=== PATIENT | male | born 1980 | race Caucasian/White ===

== ENCOUNTER 2018-02-20 15:53 | Emergency (ER) | payer BC ==
[2018-02-20] MEDS ORDERED: Lidocaine 2% with EPINEPHrine 1:100,000 20 ML MDV INJECT ONE (16:04)
--- NOTE | 2018-02-20 16:49 | EDM.PDOC ---
ED HPI GENERAL MEDICAL PROBLEM - General Chief Complaint: Lower Extremity Injury/Pain Stated Complaint: chainsaw cut Time Seen by Provider: 02/20/18 15:56 Source of Information: Reports: Patient History Limitations: Reports: No Limitations - History of Present Illness INITIAL COMMENTS - FREE TEXT/NARRATIVE: Patient was cutting wood and during his last cut the wood kicked back, causing the blade to hit his leg above the right knee. He rates pain a 5/10 and is bearable. He has no other complaints and has a belt wrapped around his leg. Onset: Today, Sudden Onset Time: 16:00 Location: Reports: Lower Extremity, Right Quality: Reports: Ache Severity: Mild Right Upper Leg Pain Score (Numeric/FACES): 5 - Related Data Allergies Allergy/AdvReac Type Severity Reaction Status Date / Time No Known Allergies Allergy Verified 02/20/18 16:20 Home Meds: Home Meds . [No Known Home Meds] 02/20/18 [History] Past Medical History - Past Health History Medical/Surgical History: Denies Medical/Surgical History Social & Family History - Tobacco Use Smoking Status *Q: Current Every Day Smoker Years of Tobacco use: 20 Packs/Tins Daily: 1 Review of Systems - Review of Systems Review Of Systems: See Below Constitutional: Reports: No Symptoms Eyes: Reports: No Symptoms Ears: Reports: No Symptoms Nose: Reports: No Symptoms Mouth/Throat: Reports: No Symptoms Respiratory: Reports: No Symptoms Cardiovascular: Reports: No Symptoms GI/Abdominal: Reports: No Symptoms Genitourinary: Reports: No Symptoms Musculoskeletal: Reports: No Symptoms Skin: Reports: Wound Neurological: Reports: No Symptoms Psychiatric: Reports: No Symptoms ED EXAM, GENERAL - Physical Exam Exam: See Below Exam Limited By: No Limitations General Appearance: Alert, WD/WN, No Apparent Distress Peripheral Pulses: 2+: Posterior Tibial (L), Posterior Tibial (R), Dorsalis Pedis (L), Dorsalis Pedis (R) Extremities: Normal Range of Motion, Non-Tender, Normal Capillary Refill Neurological: Alert, Oriented, CN II-XII Intact, Normal Cognition, Normal Gait, Normal Reflexes, No Motor/Sensory Deficits Psychiatric: Normal Affect, Normal Mood Skin Exam: Wound/Incision (9 cm laceration to right lower thigh) Lymphatic: No Adenopathy ED TRAUMA EXTREMITY PROCEDURES - Laceration/Wound Repair Right Lower Thigh Lac/Wound Length In cm: 9 Appearance: Superficial, Linear Distal NVT: Neuro & Vascular Intact Anesthetic Type: Local Local Anesthesia - Lidocaine (Xylocaine): 1% with EPI Local Anesthetic Volume: 5cc Skin Prep: Chlorhexidine (Hibiciens) Exploration/Debridement/Repair: Wound Explored, In a Bloodless Field, No Foreign Material Found Suture Size: 4-0 Suture Type: Running Sterile Dressing Applied: Nurse Tetanus Status Addressed: Yes Complications: No Course - Vital Signs Last Recorded V/S: Last Vital Signs Temp 36.3 C 02/20/18 15:54 Pulse 94 02/20/18 15:54 Resp 18 02/20/18 15:54 BP 138/85 02/20/18 15:54 Pulse Ox 97 02/20/18 15:54 - Orders/Labs/Meds Orders: Active Orders 24 hr Category Date Time Status Femur Min 2V Rt [CR] Stat Exams 02/20/18 16:16 Ordered Meds: Medications Discontinued Medications Generic Name Dose Route Start Last Admin Trade Name Petra PRN Reason Stop Dose Admin Lidocaine/Epinephrine 20 ml 02/20/18 16:04 Xylocaine 2% With Epinephrine 1:100,000 INJECT 02/20/18 16:05 ONETIME ONE - Radiology Interpretation Free Text/Narrative:: x-ray negative for foreign body, nothing seen on inspection and cleaning either Departure - Departure Time of Disposition: 17:14 Disposition: Home, Self-Care 01 Condition: Good Clinical Impression: Laceration of thigh, right - Discharge Information Instructions: Laceration Care, Adult, Wound Infection, [id number] Additional Instructions: Please remove sutures in 10 days See your primary provider for any additional symptom managment Keep clean and dry. Wash with soap and water and you may shower. Do not let soak in standing water. Please call with any questions or concerns - Problem List & Annotations (1) Laceration of thigh, right SNOMED Code(s): 419361798 Code(s): S71.111A - LACERATION WITHOUT FOREIGN BODY, RIGHT THIGH, INIT ENCNTR Status: Acute Priority: Low Current Visit: Yes Qualifiers: Encounter type: initial encounter Qualified Code(s): S71.111A - Laceration without foreign body, right thigh, initial encounter - Problem List Review Problem List Initiated/Reviewed/Updated: Yes - My Orders Last 24 Hours: My Active Orders 02/20/18 16:16 Femur Min 2V Rt [CR] Stat - Assessment/Plan Last 24 Hours: My Active Orders 02/20/18 16:16 Femur Min 2V Rt [CR] Stat Assessment:: right thigh laceration Plan: Please remove sutures in 10 days See your primary provider for any additional symptom managment Keep clean and dry. Wash with soap and water and you may shower. Do not let soak in standing water. Please call with any questions or concerns
== END 2018-02-20 17:30 | disposition home or self-care (01) ==
LOC: VM.ED 15:53
DX: S71.111A Laceration without foreign body, right thigh, initial encounter (principal); F17.210 Nicotine dependence, cigarettes, uncomplicated; W29.3XXA Contact with powered garden and outdoor hand tools and machinery, initial encounter
CPT/HCPCS: 12004; 73560-RT; 99283